=== PATIENT | male | born 2005 | race Caucasian/White ===

== ENCOUNTER 2024-10-06 09:45 | Day surgery (SDC) | payer BC ==
[~2024-10-06 09:45] MED LIST: Phenylephrine HCl In 0.9% NaCl 1 MG/10 ML Syringe IVPUSH PRN; Ropivacaine HCl/PF 400 MG in Premix Bag 1 BAG EPIDUR SCH; dexmedeTOMIDine HCl 200 MCG/2 ML SDV EPIDUR SCH; ePHEDrine 50 MG/ML SDV IVPUSH PRN
[2024-10-06] MEDS ORDERED: Bupivacaine 0.5% 30 ML SDV ONE (09:49)
[2024-10-06] MEDS ORDERED: fentaNYL 250 MCG/5 ML SDV ONE (10:10)
[2024-10-06] MEDS ORDERED: Rocuronium Bromide 50 MG/5 ML Syringe ONE (10:10)
[2024-10-06] MEDS ORDERED: Propofol 200 MG/20 ML SDV ONE (10:10)
[2024-10-06] MEDS ORDERED: Lidocaine 2% 11 ML Jelly Filled Syringe ONE (10:13)
[2024-10-06] MEDS: Lactated Ringers 1,000 ML IV SCH (10:46)
[2024-10-06] MEDS ORDERED: Ondansetron 4 MG/2 ML SDV ONE (11:19)
[2024-10-06] MEDS ORDERED: Sugammadex Sodium 200 MG/2 ML VIAL IV ONE (11:19)
[2024-10-06] MEDS ORDERED: Dexamethasone 4 MG/ML 5 ML MDV ONE (11:19)
[2024-10-06] MEDS ORDERED: fentaNYL 100 MCG/2 ML SDV ONE (11:20)
[2024-10-06] MEDS ORDERED: Ketorolac 30 MG/ML SDV ONE (11:22)
[2024-10-06] MEDS ORDERED: Acetaminophen/HYDROcodone 325-5 MG Tab PO PRN (11:52)
[2024-10-06] MEDS ORDERED: HYDROmorphone 1 MG/ML Syringe ONE (11:57)
[2024-10-06] MEDS ORDERED: Lactated Ringers 1,000 ML IV SCH (12:00)
== END 2024-10-06 12:53 | disposition home or self-care (01) ==
LOC: MW.SDS 09:45
PROVIDERS: ATTEND Surgery
DX: L05.01 Pilonidal cyst with abscess (principal); F17.290 Nicotine dependence, other tobacco product, uncomplicated; F17.210 Nicotine dependence, cigarettes, uncomplicated
CPT/HCPCS: 11770; 87070; 87075; 87077; 87186; 87205; A9270; J0131; J0665; J1100; J1171; J1885; J2405; J2704; J3010; J7120; 00300; J3490